=== PATIENT | female | born 1980 | race Caucasian/White ===

== ENCOUNTER → 2018-04-04 | Outpatient (CLI) | payer OTHER ==
[2018-04-04 13:18] LABS: ALBUMIN 3.9 g/dL (3.4-5.0); ALBUMIN/GLOBULIN RATIO 1.1 (1.0-1.7); CALCIUM 9.1 mg/dL (8.5-10.1); CREATININE 0.9 mg/dL (0.6-1.0); GFR 70.5; TOTAL BILIRUBIN 0.3 mg/dL (0.2-1.0); TOTAL PROTEIN 7.4 g/dL (6.4-8.2)
[2018-04-04 13:26] LABS: THYROID STIM HORMONE (TSH) 1.855 uIU/mL (0.358-3.74)
[2018-04-04 23:12] LABS: HEMOGLOBIN A1C 7.5 % (4.8-5.6)
== END | disposition home or self-care (01) ==
LOC: LAB 12:03
PROVIDERS: ATTEND Internal Medicine Endocrinology, Diabetes & Metabolism
DX: E10.9 Type 1 diabetes mellitus without complications (principal); E03.9 Hypothyroidism, unspecified; E55.9 Vitamin D deficiency, unspecified
CPT/HCPCS: 36415; 80053; 83036; 84439; 84443; 84681

== ENCOUNTER → 2018-05-25 | Outpatient (CLI) | payer OTHER ==
[2018-05-25 12:29] LABS: BASO # 0.1 x10^3/uL (0.0-0.2); BASO % 1 % (0-3); EOS # 0.2 x10^3/uL (0.0-0.7); EOS % 4 % (0-3); HEMATOCRIT 34.3 % (36.0-47.0); HEMOGLOBIN 11.5 g/dL (12.0-15.5); LYMPH # 1.5 x10^3/uL (1.0-4.8); LYMPH % 24 % (24-48); MEAN CORPUSCULAR HEMOGLOBIN 26 pg (25-35); MEAN CORPUSCULAR HGB CONC 33 g/dL (31-37); MEAN CORPUSCULAR VOLUME 77 fL (79-100); MONO # 0.4 x10^3/uL (0.0-1.1); MONO % 6 % (0-9); NEUT # 4.1 x10^3uL (1.8-7.7); NEUT % 66 % (31-73); PLATELET COUNT 282 x10^3/uL (140-400); RED BLOOD COUNT 4.48 x10^6/uL (3.50-5.40); RED CELL DISTRIBUTION WIDTH 15.7 % (11.5-14.5); WHITE BLOOD COUNT 6.2 x10^3/uL (4.0-11.0)
[2018-05-25 12:50] LABS: ALBUMIN/GLOBULIN RATIO 1.1 (1.0-1.7); CALCIUM 8.9 mg/dL (8.5-10.1); CREATININE 0.9 mg/dL (0.6-1.0); GFR 70.5; POTASSIUM 3.9 mmol/L (3.5-5.1); TOTAL BILIRUBIN 0.3 mg/dL (0.2-1.0); TOTAL PROTEIN 7.5 g/dL (6.4-8.2)
[2018-05-25 12:57] LABS: CHOLESTEROL/HDL RATIO 4.2
== END | disposition home or self-care (01) ==
LOC: LAB 12:09
PROVIDERS: ATTEND Family Medicine
DX: E10.65 Type 1 diabetes mellitus with hyperglycemia (principal); E55.9 Vitamin D deficiency, unspecified; R76.8 Other specified abnormal immunological findings in serum; Z86.2 Personal history of diseases of the blood and blood-forming organs and certain disorders involving the immune mechanism
CPT/HCPCS: 80053; 80061; 82306; 85025

== ENCOUNTER → 2018-05-25 | Outpatient (CLI) | payer OTHER | END | disposition home or self-care (01) | LOC: LAB 12:04 | PROVIDERS: ATTEND Internal Medicine Endocrinology, Diabetes & Metabolism | DX: E10.9 Type 1 diabetes mellitus without complications (principal); E03.9 Hypothyroidism, unspecified | CPT/HCPCS: 36415; 82947; 83036 ==

== ENCOUNTER → 2018-08-08 | Outpatient (CLI) | payer OTHER ==
[~2018-08-08] MED LIST: GADOBUTROL 7.5 MMOL/7.5 ML VIAL INT ART ONE; IOHEXOL 300 MG/ML 50 ML VIAL. INT ART ONE; LIDOCAINE WITH 8.4% SOD BICARB 3 ML DISP.SYRIN. INJ ONE; LIDOCAINE WITH 8.4% SOD BICARB 3 ML DISP.SYRIN. ONE
--- NOTE | 2018-08-08 09:44 | RAD ---
Fluoroscopically guided left shoulder joint injection, 08/08/2018: History: Shoulder pain, Gadavist injection for MR arthrogram Under local anesthesia, aseptic conditions and fluoroscopic guidance a 22-gauge spinal needle was passed into the left shoulder joint via an anterior approach. A small amount of iodinated contrast material was injected to confirm intra-articular positioning following which 15 cc of a dilute Gadavist solution was injected into the joint. The needle was then removed and hemostasis obtained. 1.5 minutes of fluoroscopy time is utilized. 2 fluoroscopic spot images were recorded. The patient tolerated the procedure well and was sent to the MR suite in good condition.
--- NOTE | 2018-08-08 12:49 | RAD ---
MR arthrogram of the left shoulder HISTORY: Left shoulder pain TECHNIQUE: Routine 4 plane imaging obtained after intra-articular contrast injection, reported separately. FINDINGS: Acromioclavicular joint is intact. No evidence of supraspinatus or infraspinatus tendon tear. The subscapularis tendon demonstrates mild thickening and heterogeneity, may just be due to the injection procedure, no evidence of an actual defect. No significant subdeltoid bursal fluid or contrast. No acute articular cartilage defect. Mild heterogeneity of the superior labrum. There is a linear defect within the labral tissue directly laterally compatible with a tear. Posterior labrum appears small in size but no detachment. Biceps tendon intact. No bone destruction or acute fracture. No acute soft tissue abnormality. IMPRESSION: 1. Tear of the superior labrum. 2. Heterogeneity of the subscapularis tendon, likely just due to the injection procedure. Electronically signed by: Pop Braun MD (08/08/2018 12:45 PM) [facility]
== END | disposition home or self-care (01) ==
LOC: RAD 07:48
PROVIDERS: ATTEND Orthopaedic Surgery Sports Medicine
DX: S43.492A Other sprain of left shoulder joint, initial encounter (principal); X58.XXXA Exposure to other specified factors, initial encounter; Y93.89 Activity, other specified; Y92.89 Other specified places as the place of occurrence of the external cause; Y99.8 Other external cause status
CPT/HCPCS: 73040; 73222

== ENCOUNTER → 2019-04-11 | Outpatient (CLI) | payer OTHER ==
[2019-04-11 09:18] LABS: CALCIUM 8.8 mg/dL (8.5-10.1); GFR 62.1
[2019-04-11 09:20] LABS: CHOLESTEROL/HDL RATIO 4.4
[2019-04-11 09:25] LABS: FREE T4 0.85 ng/dL (0.76-1.46); THYROID STIM HORMONE (TSH) 3.485 uIU/mL (0.358-3.74)
[2019-04-11 09:30] LABS: POTASSIUM 4.1 mmol/L (3.5-5.1)
[2019-04-11 20:09] LABS: CREAT RD UR 224.7 mg/dL (Not Estab.); MICRO CREAT RATIO 2.7 mg/g creat (0.0-30.0)
== END | disposition home or self-care (01) ==
LOC: LAB 07:40
PROVIDERS: ATTEND Internal Medicine Endocrinology, Diabetes & Metabolism
DX: E10.65 Type 1 diabetes mellitus with hyperglycemia (principal); E03.9 Hypothyroidism, unspecified
CPT/HCPCS: 36415; 80048; 80061; 82043; 82570; 84439; 84443